=== PATIENT | female | born 1950 | race Caucasian/White ===

== ENCOUNTER 2024-02-05 20:35 | Emergency (ER) | payer MEDICAID, MEDICARE ==
[~2024-02-05] VITALS: Ht 157.5 cm; Wt 57.6 kg
[2024-02-05 20:36] VITALS: BP 141/87; TEMP 97.8; O2SAT 96
== END 2024-02-06 01:04 | disposition left against medical advice (07) ==
LOC: M ED 20:35
DX: Z53.21 Procedure and treatment not carried out due to patient leaving prior to being seen by health care provider (principal)